=== PATIENT | female | born 1960 | race Caucasian/White ===

== ENCOUNTER 2017-03-27 13:16 | Emergency (ER) | payer SELFPAY ==
[2017-03-27 13:23] VITALS: BP 104/75; PULSE 97; TEMP 97.5
--- NOTE | 2017-03-27 13:37 | EDPHY ---
H & P Stated Complaint: fell broke right arm 3 days ago, seen at [place], left AMA w/ o instruction Source: Patient Exam Limitations: No limitations - Personal History Current Tetanus/Diphtheria Vaccine: Yes Current Tetanus Diphtheria and Acellular Pertussis (TDAP): Yes Tetanus Vaccine Date: < 10 years - Medical/Surgical History Hx Asthma: No Hx Chronic Respiratory Disease: Yes Hx Diabetes: No Hx Cardiac Disease: No Hx Renal Disease: Yes Hx Cirrhosis: No Hx Alcoholism: Yes Hx HIV/AIDS: No Hx Splenectomy or Spleen Trauma: No Other PMH: ETOH, Hep C, COPD, degenerative disk disease, CKD - Social History Smoking Status: Current every day smoker Time Seen by Provider: 03/27/17 13:36 HPI/ROS: HPI: This is a 56-year-old female who presents with Chief Complaint: fell broke right arm 3 days ago, seen at [place], left AMA w/ o instruction Location: Right arm Quality: Injury Duration: 3 days ago Signs and Symptoms: No bleeding, no radiation, no numbness, no weakness, no tingling, no incontinence, + decreased range of motion Timing: Sudden Severity: [id number] Context: Patient reports that she was seen at [facility] approximately 3 days ago after she accidentally fell while intoxicated with alcohol. She admits that she left AMA without physical instructions or medications. She was getting off the bus to come to the hospital today and fell again on her right arm which has been placed into a long arm posterior splint. She is able to wiggle her fingers and retail buyer shoulders without difficulty. She believes that she fractured her forearm and cracked her elbow. Modifying Factors: Splint Comment: ROS: see HPI Constitutional: No fever, no chills, no weight loss Eyes: No blurred vision Respiratory: No shortness of breath, no cough Cardiovascular: No chest pain Gastrointestinal: No nausea, no vomiting no diarrhea Genitourinary: No dysuria Extremities: No myalgias Neurologic: No weakness, no numbness Skin: No rashes Hematologic: No bruising, no bleeding MEDICAL/SURGICAL/SOCIAL HISTORY: Medical history: ETOH, Hep C, COPD, degenerative disk disease, CKD Surgical history: Left leg skin grafts Social history: Unemployed CONSTITUTIONAL: Adult white female who appears older than stated age, awake and alert, no obvious distress HEENT: Atraumatic and normocephalic, PERRL, EOMI. no globe entrapment, no raccoon eyes. no Hawkins signs.Tympanic membranes clear. No tympanic membrane rupture. Nares patent; no septal hematoma. Oropharynx clear, no exudate and moist pink mucosa. No malocclusion. no dental trauma. Airway patent. No lymphadenopathy. NECK: supple, no midline tenderness, flexion 45 degrees, extension 45 degrees, right and left lateral flexion 45 degrees. No meningismus. Cardiovascular: Normal S1/S2, regular rate, regular rhythm, without murmur rub or gallop. PULMONARY/CHEST: Symmetrical and nontender. no crepitus. Clear to auscultation bilaterally. Good air movement. No accessory muscle usage. ABDOMEN: Soft, nondistended, nontender, no ecchymosis, no rebound, no guarding , no peritoneal signs, no masses or organomegaly. No CVAT. PELVIC: no pain with rocking; bilateral hips flexion 125 degrees, extension 30 degrees, with no pain internal rotation and no pain external rotation. BACK: No midline tenderness, no paraspinous spasm, deep tendon reflexes 2/2, no pain with straight leg raise EXTREMITIES: Right arm from above her elbow to her MCP joints is in all long posterior splint. fingers have full range of motion of flexion and extension as well as good capillary refill and light touch sensation is intact. no deformities, no clubbing, no cyanosis or edema. NEUROLOGICAL: no focal neuro deficits. GCS 15. SKIN: Warm and dry, no erythema. no rash. Good capillary refill. (Estella Navarro) Constitutional: Initial Vital Signs Temperature (C) 36.4 C 03/27/17 13:20 Heart Rate 97 03/27/17 13:20 Respiratory Rate 20 03/27/17 13:20 Blood Pressure 104/75 03/27/17 13:20 O2 Sat (%) 95 03/27/17 13:20 O2 Delivery Mode Room Air Allergies/Adverse Reactions: No Known Allergies Allergy (Unverified 03/27/17 13:19) Home Medications: Medication Instructions Recorded NK [No Known Home Meds] 03/27/17 Medical Decision Making - Diagnostics Imaging Results: Imaging Impressions Elbow X-Ray 03/27/17 13:40 Impression: Normal casted alignment. 2. Right Wrist, 3 portable views through a cast History: Fall 3 days ago, splinted in [place] Comparison: None Findings: Cast material obscures fine bony detail. There is a distal radial intra-articular fracture that on the lateral view courses between the mid distal radial articular surface through the dorsal radial metaphysis. There is no significant widening of the distal radial articular surface or dorsal angulation. There is no significant shortening. The ulnar styloid process is short and intact. Impression: Anatomic alignment of the distal radial intra-articular fracture. 3. Right Forearm, 2 views through a cast History: Fall 3 days ago Findings: Cast material obscures fine bony detail. The radial and ulnar shafts are intact and normally aligned. The distal radial fracture described in the wrist x-ray report is visualized. No elbow abnormality is identified on the single view on which it is included. Impression: Negative forearm. Forearm X-Ray 03/27/17 13:40 Impression: Normal casted alignment. 2. Right Wrist, 3 portable views through a cast History: Fall 3 days ago, splinted in [place] Comparison: None Findings: Cast material obscures fine bony detail. There is a distal radial intra-articular fracture that on the lateral view courses between the mid distal radial articular surface through the dorsal radial metaphysis. There is no significant widening of the distal radial articular surface or dorsal angulation. There is no significant shortening. The ulnar styloid process is short and intact. Impression: Anatomic alignment of the distal radial intra-articular fracture. 3. Right Forearm, 2 views through a cast History: Fall 3 days ago Findings: Cast material obscures fine bony detail. The radial and ulnar shafts are intact and normally aligned. The distal radial fracture described in the wrist x-ray report is visualized. No elbow abnormality is identified on the single view on which it is included. Impression: Negative forearm. Wrist X-Ray 03/27/17 13:40 Impression: Normal casted alignment. 2. Right Wrist, 3 portable views through a cast History: Fall 3 days ago, splinted in [place] Comparison: None Findings: Cast material obscures fine bony detail. There is a distal radial intra-articular fracture that on the lateral view courses between the mid distal radial articular surface through the dorsal radial metaphysis. There is no significant widening of the distal radial articular surface or dorsal angulation. There is no significant shortening. The ulnar styloid process is short and intact. Impression: Anatomic alignment of the distal radial intra-articular fracture. 3. Right Forearm, 2 views through a cast History: Fall 3 days ago Findings: Cast material obscures fine bony detail. The radial and ulnar shafts are intact and normally aligned. The distal radial fracture described in the wrist x-ray report is visualized. No elbow abnormality is identified on the single view on which it is included. Impression: Negative forearm. ED Course/Re-evaluation: X-rays and oral medication ordered Given Ultram 50 mg p.o. with adequate relief of pain X-rays reviewed via PACs and show distal radius fracture and possible ulnar styloid fracture. Do not appreciate olecranon fracture. Patient already in an appropriate splint and it is in good condition No signs of neurovascular compromise/tenting of skin/compartment syndrome/ extremities and joints examined above and below area of concern and are neurovascularly intact. Advised RICE therapy, Ortho follow-up (Estella Navarro) The patient was evaluated and managed by the physician itinerant teacher assistant. I have reviewed this chart and I agree with the findings and plan of care as documented , as indicated by my signature. I am the secondary supervising physician. ( Amy Medina) Differential Diagnosis: Differential diagnosis includes but is not limited to fracture, nerve injury, tendon injury, contusion, sprain. (Estella Navarro) - Data Points Medications Given: Discontinued Medications Tramadol HCl (Ultram) 50 mg PO EDNOW ONE Stop: 03/27/17 13:41 Last Admin: 03/27/17 13:49 Dose: 50 mg Departure - Departure Disposition: Home, Routine, Self-Care Clinical Impression: Right wrist fracture Qualifiers: Encounter type: initial encounter Fracture type: closed Qualified Code(s): S62.101A - Fracture of unspecified carpal bone, right wrist, initial encounter for closed fracture Closed fracture of right distal radius Qualifiers: Encounter type: initial encounter Fracture morphology: unspecified fracture morphology Qualified Code(s): S52.501A - Unspecified fracture of the lower end of right radius, initial encounter for closed fracture Instructions: Elbow Fracture (ED), Wrist Fracture in Adults (ED) Additional Instructions: Keep the splint dry and in place until seen by Orthopedics for follow-up. Take ibuprofen 600 mg every 6-8 hours with food as needed for pain and inflammation. Apply ice for 30 minutes at a time; 2-3 times per day for the next 1-2 days. Follow up with Orthopedics in 5-7 days at which time they will evaluate and recommend with you if conservative management versus surgery is indicated. Referrals: Tripp Mendez MD [Medical Doctor] - As per Instructions
[2017-03-27] MEDS ORDERED: traMADol 50 MG TAB PO ONE (13:40)
--- NOTE | 2017-03-27 15:25 | ASMTCMCOM ---
CM Note CM Note Notes: Patient requested a bus pass back to [facility]. Patient reported to ED that she had told a business intelligence analyst that she was someone's caregiver in order to get a free ride to the hospital. This CM went into speak to patient about follow-up appointment and care [facility]. Patient states she has been staying at the [facility] for almost two weeks and been in [place] for about 2 months. Patient originally from [place]. 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 We discussed that she would need to follow up with [facility]. Patient mentioned that she knew [facility] might be at the [facility] tomorrow but "I need a chest x-ray so I thought I'd come here." Patient informed that the ED does not do chest x-rays for TB cards and that she should plan on following up with [facility] tomorrow. Patient was offered additional information on homeless resources and [facility] homeless drop-in hours, but when patient was informed that this CM didn't have any bus passes for her, she became upset and declined additional resources including a map with directions on how to walk to the [facility]. Patient can ambulate very well without any assistance, and it is currently 76 degrees F and mauricio outside. Patient declined any further assistance and ambulated out of the ED. Date Signed: 03/27/2017 03:24 PM Electronically Signed By:Heather Hagan RN
[2017-03-27 15:39] VITALS: RESP 18; O2SAT 98
== END 2017-03-27 15:39 | disposition home or self-care (01) ==
DX: S52.501A Unspecified fracture of the lower end of right radius, initial encounter for closed fracture (principal); J44.9 Chronic obstructive pulmonary disease, unspecified; N18.9 Chronic kidney disease, unspecified; F17.200 Nicotine dependence, unspecified, uncomplicated; W18.39XA Other fall on same level, initial encounter; Y99.8 Other external cause status; Y93.89 Activity, other specified

== ENCOUNTER 2017-04-08 12:05 | Emergency (ER) | payer SELFPAY ==
[2017-04-08] MEDS ORDERED: ONDANSETRON DISINTEGRATING 4 MG TAB PO ONE (12:15)
--- NOTE | 2017-04-08 12:42 | EDPHY ---
H & P Stated Complaint: "im sick i need a drink"--nausea x 3 hours, last etoh this am HPI/ROS: HPI CHIEF COMPLAINT: Nausea, alcohol intoxication, I do not feel well HISTORY OF PRESENT ILLNESS: Patient very pleasant 56-year-old female she is homeless, alcoholic daily alcohol use, last drink was an hour ago. She presents emergency room by private vehicle stating that she does not feel well. She reports to me that she feels like she is going to alcohol draw put her last drink was an hour ago. She complains of nausea but no vomiting. She denies chest pain. Main complaint is overall feeling unwell. Generalized weakness. Past Medical History: Alcoholism, hepatitis-C, chronic kidney disease Past Surgical History: No recent surgery Social History: Homeless, daily alcohol use. Family History: Noncontributory. ROS REVIEW OF SYSTEMS: A comprehensive 10 point review of systems is otherwise negative aside from elements mentioned in the history of present illness. Exam Constitutional appears disheveled, unkept, nontoxic triage nursing summary reviewed, vital signs reviewed, awake/alert. Initial vital signs noted to be tachycardic and somewhat hypotensive in triage. Eyes normal conjunctivae and sclera, EOMI, PERRLA. HENT normal inspection, atraumatic, moist mucus membranes, no epistaxis, neck supple/ no meningismus, no raccoon eyes. Respiratory clear to auscultation bilaterally, normal breath sounds, no respiratory distress, no wheezing. Cardiovascular rate normal, regular rhythm, no murmur, no edema, distal pulses normal. Gastrointestinal soft, non-tender, no rebound, no guarding, normal bowel sounds, no distension, no pulsatile mass. Genitourinary no CVA tenderness. Musculoskeletal no midline vertebral tenderness, full range of motion, no calf swelling, no tenderness of extremities, no meningismus, good pulses, neurovascularly intact. Skin pink, warm, & dry, no rash, skin atraumatic. Neurologic awake, alert and oriented x 3, AAOx3, moves all 4 extremities equally, motor intact, sensory intact, CN II-XII intact, normal cerebellar, normal vision, normal speech. Psychiatric normal mood/affect. Heme/Lymph/Immune no lymphadenopathy. Differential Diagnosis: Includes but is not limited to in a particular order, infection, sepsis, pneumonia, bacteremia, electrolyte disturbance, dehydration, alcohol intoxication, alcohol withdrawal Medical Decision Making: Plan for this patient IV establishment IV fluid bolus , IV Zofran for nausea, check electrolytes, alcohol level, x-ray of her chest, EKG troponin. Re-evaluation: 1553: After evaluation this patient is feeling much better with nausea medicine IV fluids. There is no evidence of sepsis. Alcohol level noted to be high. She is requesting be discharged to go to detox. I will provide Librium for. Vital signs have normalized. She is not hypotensive. She is not tachycardic. She is feeling much better after IV fluids and nausea medicine. Blood work reviewed. Chest x-ray and EKG reviewed. EKG interpretation by me on record in [employer] system. Impression time of EKG 1302, this is sinus rhythm rate of 89. There is no acute ischemic change or prolonged intervals. Unremarkable EKG. Will provide Librium. Patient at this time 3:56 p.m. asking to eat and drink something. She would like soup. Source: Patient - Personal History Current Tetanus/Diphtheria Vaccine: Unsure Current Tetanus Diphtheria and Acellular Pertussis (TDAP): Unsure Tetanus Vaccine Date: < 10 years - Medical/Surgical History Hx Asthma: No Hx Chronic Respiratory Disease: Yes Hx Diabetes: No Hx Cardiac Disease: No Hx Renal Disease: Yes Hx Cirrhosis: No Hx Alcoholism: Yes Hx HIV/AIDS: No Hx Splenectomy or Spleen Trauma: No Other PMH: ETOH, withdrawal seizures, Hep C, COPD, degenerative disk disease, CKD - Social History Smoking Status: Current every day smoker Constitutional: Initial Vital Signs Temperature (C) 37.0 C 04/08/17 12:11 Heart Rate 111 H 04/08/17 12:11 Respiratory Rate 18 04/08/17 12:11 Blood Pressure 89/62 L 04/08/17 12:11 O2 Sat (%) 93 04/08/17 12:11 O2 Delivery Mode Room Air Allergies/Adverse Reactions: No Known Allergies Allergy (Verified 04/08/17 12:10) Home Medications: Medication Instructions Recorded NK [No Known Home Meds] 03/27/17 Medical Decision Making - Diagnostics Imaging Results: Imaging Impressions Chest X-Ray 04/08/17 12:45 Impression: Stable and negative. - Data Points Laboratory Results: Laboratory Results 04/08/17 12:45 04/08/17 12:35 04/08/17 04/08/17 04/08/17 12:45 12:35 12:35 WBC 10.04 10^3/uL H 10^3/uL (3.80-9.50) RBC 4.66 10^6/uL 10^6/uL (4.18-5.33) Hgb 15.6 g/dL g/dL (12.6-16.3) Hct 44.8 % % (38.0-47.0) MCV 96.1 fL fL (81.5-99.8) MCH 33.5 pg pg (27.9-34.1) MCHC 34.8 g/dL g/dL (32.4-36.7) RDW 13.4 % % (11.5-15.2) Plt Count 342 10^3/uL 10^3/uL (150-400) MPV 10.5 fL fL (8.7-11.7) Neut % (Auto) 55.8 % % (39.3-74.2) Lymph % (Auto) 34.7 % % (15.0-45.0) [place] % (Auto) 6.0 % % (4.5-13.0) Eos % (Auto) 1.9 % % (0.6-7.6) Baso % (Auto) 1.2 % % (0.3-1.7) Nucleat RBC Rel Count 0.0 % % (0.0-0.2) Absolute Neuts (auto) 5.61 10^3/uL 10^3/uL (1.70-6.50) Absolute Lymphs (auto) 3.48 10^3/uL H 10^3/uL (1.00-3.00) Absolute Monos (auto) 0.60 10^3/uL 10^3/uL (0.30-0.80) Absolute Eos (auto) 0.19 10^3/uL 10^3/uL (0.03-0.40) Absolute Basos (auto) 0.12 10^3/uL H 10^3/uL (0.02-0.10) Absolute Nucleated RBC 0.00 10^3/uL 10^3/uL (0-0.01) Immature Gran % 0.4 % % (0.0-1.1) Immature Gran # 0.04 10^3/uL 10^3/uL (0.00-0.10) PT INR APTT VBG Lactic Acid Sodium 143 mEq/L mEq/L (134-144) Potassium 3.5 mEq/L mEq/L (3.5-5.2) Chloride 104 mEq/L mEq/L (97-110) Carbon Dioxide 22 mEq/l mEq/l (22-31) Anion Gap 17 mEq/L H mEq/L (8-16) BUN 15 mg/dL mg/dL (7-23) Creatinine 0.6 mg/dL mg/dL (0.6-1.0) Estimated GFR > 60 Glucose 91 mg/dL mg/dL (70-100) Calcium 9.7 mg/dL mg/dL (8.5-10.4) Total Bilirubin 0.3 mg/dL mg/dL (0.1-1.4) Conjugated Bilirubin 0.2 mg/dL mg/dL (0.0-0.5) Unconjugated Bilirubin 0.1 mg/dL mg/dL (0.0-1.1) AST 67 IU/L H IU/L (14-46) ALT 69 IU/L H IU/L (9-52) Alkaline Phosphatase 118 IU/L IU/L (38-126) Troponin I < 0.012 ng/mL ng/mL (0.000-0.034) Total Protein 7.8 g/dL g/dL (6.3-8.2) Albumin 4.4 g/dL g/dL (3.5-5.0) Lipase 57 IU/L IU/L (23-300) Urine Color YELLOW Urine Appearance CLEAR Urine pH 6.0 (5.0-7.5) Ur Specific [employer] 1.008 (1.002-1.030) Urine Protein NEGATIVE (NEGATIVE) Urine Ketones NEGATIVE (NEGATIVE) Urine Blood NEGATIVE (NEGATIVE) Urine Nitrate NEGATIVE (NEGATIVE) Urine Bilirubin NEGATIVE (NEGATIVE) Urine Urobilinogen NEGATIVE EU EU (0.2-1.0) Ur Leukocyte Esterase NEGATIVE (NEGATIVE) Urine Glucose NEGATIVE (NEGATIVE) Urine Opiates Screen NEGATIVE (NEGATIVE) Urine Barbiturates NEGATIVE (NEGATIVE) Ur Phencyclidine Scrn NEGATIVE (NEGATIVE) Ur Amphetamine Screen NEGATIVE (NEGATIVE) U Benzodiazepines Scrn NEGATIVE (NEGATIVE) Urine Cocaine Screen NEGATIVE (NEGATIVE) U Marijuana (THC) Screen NON-NEGATIVE H (NEGATIVE) Ethyl Alcohol 210 mg/dL H mg/dL (0-10) 04/08/17 04/08/17 12:35 12:35 WBC RBC Hgb Hct MCV MCH MCHC RDW Plt Count MPV Neut % (Auto) Lymph % (Auto) [place] % (Auto) Eos % (Auto) Baso % (Auto) Nucleat RBC Rel Count Absolute Neuts (auto) Absolute Lymphs (auto) Absolute Monos (auto) Absolute Eos (auto) Absolute Basos (auto) Absolute Nucleated RBC Immature Gran % Immature Gran # PT 12.1 SEC SEC (12.0-15.0) INR 0.91 (0.83-1.16) APTT 27.5 SEC SEC (23.0-38.0) VBG Lactic Acid 2.6 mmol/L H mmol/L (0.7-2.1) Sodium Potassium Chloride Carbon Dioxide Anion Gap BUN Creatinine Estimated GFR Glucose Calcium Total Bilirubin Conjugated Bilirubin Unconjugated Bilirubin AST ALT Alkaline Phosphatase Troponin I Total Protein Albumin Lipase Urine Color Urine Appearance Urine pH Ur Specific [employer] Urine Protein Urine Ketones Urine Blood Urine Nitrate Urine Bilirubin Urine Urobilinogen Ur Leukocyte Esterase Urine Glucose Urine Opiates Screen Urine Barbiturates Ur Phencyclidine Scrn Ur Amphetamine Screen U Benzodiazepines Scrn Urine Cocaine Screen U Marijuana (THC) Screen Ethyl Alcohol Medications Given: Discontinued Medications Sodium Chloride (Ns) 1,000 mls @ 0 mls/hr IV EDNOW ONE; Wide Open PRN Reason: Protocol Stop: 04/08/17 12:46 Last Admin: 04/08/17 13:44 Dose: 1,000 mls Sodium Chloride (Ns) 1,000 mls @ 0 mls/hr IV ONCE ONE PRN Reason: Wide Open Stop: 04/08/17 13:43 Last Admin: 04/08/17 13:48 Dose: 1,000 mls Ondansetron HCl (Zofran Odt) 4 mg PO EDNOW ONE Stop: 04/08/17 12:16 Last Admin: 04/08/17 12:25 Dose: Not Given Ondansetron HCl (Zofran) 4 mg IVP EDNOW ONE Stop: 04/08/17 12:46 Last Admin: 04/08/17 13:44 Dose: 4 mg Departure - Departure Disposition: Home, Routine, Self-Care Clinical Impression: Alcohol withdrawal Qualifiers: Complication of substance-induced condition: uncomplicated Qualified Code(s): F10.230 - Alcohol dependence with withdrawal, uncomplicated Condition: Good Instructions: Alcohol Withdrawal (ED) Additional Instructions: 1. Return emergency room if develops worsening symptoms questions or concerns includes vomiting or feeling ill. Referrals: NONE *PRIMARY CARE P,. [Primary Care Provider] - As per Instructions
[2017-04-08] MEDS ORDERED: NS 1,000 ML IV ONE ×2 (12:45→13:42)
[2017-04-08] MEDS ORDERED: ONDANSETRON 4 MG/2 ML VIAL IVP ONE (12:45)
[2017-04-08 12:55] LABS: PLATELET COUNT 342 10^3/uL (150-400)
--- NOTE | 2017-04-08 13:04 | CPEKG ---
Heart Rate: 89 RR Interval: 674 P-R Interval: 152 QRSD Interval: 86 QT Interval: 384 QTC Interval: 468 P Leming: 76 QRS Leming: 58 T Wave Leming: 77 EKG Severity - NORMAL ECG - EKG Impression: SINUS RHYTHM Electronically Signed By: Giovanni Ventura 08-Apr-2017 18:34:25
[2017-04-08 13:06] LABS: INR 0.91 (0.83-1.16); PROTIME(PATIENT) 12.1 SEC (12.0-15.0)
[2017-04-08 15:03] VITALS: TEMP 97.7
[2017-04-08] MEDS ORDERED: chlordiazePOXIDE 25 MG CAP PO ONE (15:56)
[2017-04-08] MEDS ORDERED: CHLORDIAZEPOXIDE 25MG PREPK#6 BTL TAKEHOME ONE (15:56)
[2017-04-08 16:22] VITALS: BP 108/68; PULSE 90; RESP 16; O2SAT 93
--- NOTE | 2017-04-08 16:52 | ASDISCHSUM ---
Discharge Information Plan Status:Homeless/[facility] Medically Cleared to Leave: Discharge Date:04/08/2017 04:24 PM CM D/C Disposition:Other (Not listed) ADT D/C Disposition:Home, Routine, Self-Care Projected Discharge Date:04/08/2017 04:24 PM Transportation at D/C:Cab Voucher Discharge Delay Reason: Follow-Up Date:04/08/2017 04:24 PM Discharge Slot: Final Diagnosis: Placement Information Patient Contact Information Contact Name:JUSTICE Relationship: Address: Home Phone: Work Phone: City: Alternate Phone: State/[place] Code: Email: Financial Information Financial Class:Self-Pay Primary Plan Desc:SELF PAY Primary Plan Number: Secondary Plan Desc: Secondary Plan Number: Assessment Information LACE LACE Acuity / Level of Care Answers: Was the patient admitted to hospital via the emergency department? Yes: Emergency dept visits in Answers: 2 last 6 months Score: 5 Date Signed: 04/08/2017 04:49 PM Electronically Signed By:Heather Hagan RN Intervention Information
--- NOTE | 2017-04-08 16:52 | ASDISCHSUM ---
Discharge Information Plan Status:Homeless/[facility] Medically Cleared to Leave: Discharge Date:04/08/2017 04:24 PM CM D/C Disposition:Other (Not listed) ADT D/C Disposition:Home, Routine, Self-Care Projected Discharge Date:04/08/2017 04:24 PM Transportation at D/C:Cab Voucher Discharge Delay Reason: Follow-Up Date:04/08/2017 04:24 PM Discharge Slot: Final Diagnosis: Placement Information Patient Contact Information Contact Name:JUSTICE Relationship: Address: Home Phone: Work Phone: City: Alternate Phone: State/[employer] Code: Email: Financial Information Financial Class:Self-Pay Primary Plan Desc:SELF PAY Primary Plan Number: Secondary Plan Desc: Secondary Plan Number: Assessment Information LACE LACE Acuity / Level of Care Answers: Was the patient admitted to hospital via the emergency department? Yes: Emergency dept visits in Answers: 2 last 6 months Score: 5 Date Signed: 04/08/2017 04:49 PM Electronically Signed By:Heather Hagan RN Intervention Information
--- NOTE | 2017-04-08 16:52 | ASDISCHSUM ---
Discharge Information Plan Status:Homeless/Correction Medically Cleared to Leave: Discharge Date:04/08/2017 04:24 PM CM D/C Disposition:Other (Not listed) ADT D/C Disposition:Home, Routine, Self-Care Projected Discharge Date:04/08/2017 04:24 PM Transportation at D/C:Cab Voucher Discharge Delay Reason: Follow-Up Date:04/08/2017 04:24 PM Discharge Slot: Final Diagnosis: Placement Information Patient Contact Information Contact Name:JUSTICE Relationship: Address: Home Phone: Work Phone: City: Alternate Phone: State/[place] Code: Email: Financial Information Financial Class:Self-Pay Primary Plan Desc:SELF PAY Primary Plan Number: Secondary Plan Desc: Secondary Plan Number: Assessment Information LACE LACE Acuity / Level of Care Answers: Was the patient admitted to hospital via the emergency department? Yes: Emergency dept visits in Answers: 2 last 6 months Score: 5 Date Signed: 04/08/2017 04:49 PM Electronically Signed By:Heather Hagan RN Intervention Information
== END 2017-04-08 16:24 | disposition home or self-care (01) ==
DX: F10.230 Alcohol dependence with withdrawal, uncomplicated (principal); J44.9 Chronic obstructive pulmonary disease, unspecified; F17.200 Nicotine dependence, unspecified, uncomplicated; E86.9 Volume depletion, unspecified
CPT/HCPCS: 80305; 96374; G0480; J2405

== ENCOUNTER 2017-09-06 03:08 | Emergency (ER) | payer MEDICAID ==
[2017-09-06 03:15] VITALS: TEMP 97.3
--- NOTE | 2017-09-06 03:53 | EDPHY ---
H & P Stated Complaint: SENT FROM [facility] FOR LIBRIUM,LAST DRINK EARLIER TODAY Time Seen by Provider: 09/06/17 03:52 HPI/ROS: HPI The patient [facility] the [facility] with symptoms of alcohol withdrawal. Her last drink was earlier today and she is feeling anxious , nauseated and tremulous. She has been feeling this way for the last several hours, it is getting progressively worse. She does have a history of alcohol withdrawal and seizures. She denies any other drug use.. REVIEW OF SYSTEMS Constitutional: No fever, no chills. Eyes: No discharge. ENT: No sore throat. Cardiovascular: No chest pain, no palpitations. Respiratory: No cough, no shortness of breath. Gastrointestinal: No abdominal pain, no vomiting. Genitourinary: No hematuria. Musculoskeletal: No back pain. Skin: No rashes. Neurological: No headache. PMHx: Chronic alcohol abuse, history of polysubstance abuse, history of COPD Soc Hx: Currently at the [facility] PHYSICAL General Appearance: Alert, slightly anxious Eyes: Pupils equal and round no pallor or injection ENT, Mouth: Mucous membranes moist Respiratory: There are no retractions, lungs are clear to auscultation Cardiovascular: Mildly tachycardic Gastrointestinal: Abdomen is soft and non-tender, no masses, bowel sounds normal Neurological: A&O, moves all extremities, mild hand tremor Skin: Warm and dry, no rashes Musculoskeletal: Neck is supple non tender Extremities: symmetrical, full range of motion Psychiatric: Patient is oriented X 3, there is no agitation Source: Patient Exam Limitations: No limitations - Personal History Current Tetanus/Diphtheria Vaccine: Yes Tetanus Vaccine Date: < 10 years - Medical/Surgical History Hx Asthma: No Hx Chronic Respiratory Disease: Yes Hx Diabetes: No Hx Cardiac Disease: No Hx Renal Disease: Yes Hx Cirrhosis: No Hx Alcoholism: Yes Hx HIV/AIDS: No Hx Splenectomy or Spleen Trauma: No Other PMH: ETOH, withdrawal seizures, Hep C, COPD, degenerative disk disease, KIDNEY FAILURE - Social History Smoking Status: Current every day smoker Constitutional: Initial Vital Signs Temperature (C) 36.3 C 09/06/17 03:12 Heart Rate 103 H 09/06/17 03:12 Respiratory Rate 22 H 09/06/17 03:12 Blood Pressure 93/70 L 09/06/17 03:12 O2 Sat (%) 93 09/06/17 03:12 O2 Delivery Mode Room Air O2 (L/minute) 2 Allergies/Adverse Reactions: No Known Allergies Allergy (Verified 09/06/17 03:11) Home Medications: Medication Instructions Recorded NK [No Known Home Meds] 03/27/17 Medical Decision Making ED Course/Re-evaluation: This is a 57-year-old female with longstanding history of alcohol abuse who presents from the [facility] with symptoms of alcohol withdrawal , last drink earlier today. On arrival, she is mildly tachycardic, blood pressure is slightly low. She does have a mild hand tremor. She was given a L of IV fluid and a dose of Ativan for her symptoms. Blood pressure improved after receiving IV fluids. No laboratories were evaluated. She felt well and will be discharged to the [facility]. Differential diagnosis includes alcohol withdrawal, benzodiazepine withdrawal, polysubstance abuse, anxiety attack. - Data Points Medications Given: Discontinued Medications Chlordiazepoxide (Librium 25 Mg Prepack#6) 1 btl TAKEHOME EDNOW ONE Stop: 09/06/17 05:35 Last Admin: 09/06/17 05:45 Dose: 1 btl Lorazepam (Ativan Injection) 1 mg IVP EDNOW ONE Stop: 09/06/17 04:11 Last Admin: 09/06/17 04:13 Dose: 1 mg Departure - Departure Disposition: Home, Routine, Self-Care Clinical Impression: Alcohol withdrawal Qualifiers: Complication of substance-induced condition: uncomplicated Qualified Code(s): F10.230 - Alcohol dependence with withdrawal, uncomplicated Condition: Good Instructions: Alcohol Withdrawal (ED) Referrals: [facility] [Outside] - As per Instructions
[2017-09-06] MEDS ORDERED: LORazepam 2 MG/ML INJ IVP ONE (04:10)
[2017-09-06] MEDS ORDERED: LORazepam 2 MG/ML INJ ONE (04:11)
[2017-09-06 04:16] VITALS: RESP 16
[2017-09-06] MEDS ORDERED: CHLORDIAZEPOXIDE 25MG PREPK#6 BTL TAKEHOME ONE (05:34)
[2017-09-06 06:15] VITALS: BP 113/73; PULSE 82; O2SAT 98
== END 2017-09-06 06:36 | disposition home or self-care (01) ==
DX: F10.230 Alcohol dependence with withdrawal, uncomplicated (principal); J44.9 Chronic obstructive pulmonary disease, unspecified; F17.200 Nicotine dependence, unspecified, uncomplicated
CPT/HCPCS: 96374; J2060

== ENCOUNTER 2017-09-19 20:49 | Emergency (ER) | payer MEDICAID ==
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
[2017-09-19 22:23] VITALS: BP 134/77
== END 2017-09-19 22:23 | disposition home or self-care (01) ==
LOC: EDBD → EDUNIT#
DX: S62.511A Displaced fracture of proximal phalanx of right thumb, initial encounter for closed fracture (principal); F10.920 Alcohol use, unspecified with intoxication, uncomplicated; F17.200 Nicotine dependence, unspecified, uncomplicated; J44.9 Chronic obstructive pulmonary disease, unspecified; X58.XXXA Exposure to other specified factors, initial encounter

== ENCOUNTER 2017-10-31 11:52 | Emergency (ER) | payer MEDICAID ==
[2017-10-31] MEDS ORDERED: chlordiazePOXIDE 25 MG CAP PO ONE (12:44)
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
[2017-10-31 13:40] VITALS: BP 118/77
--- NOTE | 2017-10-31 18:37 | ASDISCHSUM ---
Discharge Information Plan Status:Homeless/Jail Medically Cleared to Leave: Discharge Date:10/31/2017 02:42 PM D/C Disposition:Streets (Homeless) ADT D/C Disposition:Home, Routine, Self-Care Projected Discharge Date:10/31/2017 02:42 PM Transportation at D/C:Cab Voucher Discharge Delay Reason: Follow-Up Date:10/31/2017 02:42 PM Discharge Slot: Final Diagnosis: Placement Information Patient Contact Information Contact Name:SYEDPrince Relationship: Address: Home Phone: Work Phone: City: Alternate Phone: State/Zip Code: Email: Financial Information Financial Class:Medicaid Primary Plan Desc:[employer] Primary Plan Number:[id number] Secondary Plan Desc: Secondary Plan Number: Assessment Information [facility] Progress Note CM Note CM Note Notes: Pt presented to the ED from [facility] detox after her UDS tested positive for benzodiazepines; due to this, detox will not accept pt back. Pt medically cleared/stabilized in the ED and ready for discharge. Pt states her clothes are still at detox; this CM provided a cab voucher back to Detox to crab picker her belongings. Pt aware detox will not accept her back. We discussed patient getting her clothes and then going to [facility] and discuss outpatient ETOH abuse treatment options. Pt is homeless and states she has been "kicked out" of both the [facility] and the [facility] program. However, pt states she never completed the Coordinate Entry process. This CM offered info on CE and strongly encouraged her to complete the CE but patient said "no, im headed home soon anyway, I'm not going to bother with that." Pt states she is from [place] and plans to return there around 11/09/17. This CM tried to tell pt that completing CE could get her referred to [facility] and they could actually help get her home to [place]. Pt kept interrupting and stating "there's no point." Pt also stated "I'll just got commit a disturbance and get placed in snf." This CM tried to discuss that pt doesn't have to resort to that when there are still potential long term options but pt did not want to partake in the conversation. Pt requested a regional bus pass to go to a [facility] long term. Pt provided regional bus pass and informed this is a one-time courtesy, especially since we are also providing a cab ride back to detox. Pt aware. Pt also strongly encourage to follow-up with [facility]. CM available for further assistance if needed. Date Signed: 10/31/2017 06:35 PM Electronically Signed By:Heather Hagan RN Intervention Information Intervention Type:Bus Pass Date of Service:10/31/2017 06:35 PM Patient Type:Emergency Room Staff Member:GRICELDA Hagan [place] Hours:0.25 Discipline:[employer] Patrol[employer] Severity: Comment:regional bus pass; pt requested in ord er to get to a [facility] Intervention Type:Cab Vouchers Date of Service:10/31/2017 06:35 PM Patient Type:Emergency Room Staff Member:GRICELDA Hagan [place] Hours:0.25 Discipline:Fore[employer] Patrolman Severity: Comment:[facility] cab voucher Intervention Type:Education Family/Patient Date of Service:10/31/2017 06:35 PM Patient Type:Emergency Room Staff Member:GRICELDA Hagan [place] Hours:0.25 Discipline:Fore[employer] Patrolman Severity: Comment:
== END 2017-10-31 14:42 | disposition home or self-care (01) ==
DX: F10.230 Alcohol dependence with withdrawal, uncomplicated (principal); T42.4X5A Adverse effect of benzodiazepines, initial encounter; J44.9 Chronic obstructive pulmonary disease, unspecified; F17.200 Nicotine dependence, unspecified, uncomplicated
CPT/HCPCS: 80305

== ENCOUNTER 2017-11-24 11:28 | Emergency (ER) | payer MEDICAID ==
--- NOTE | 2017-11-24 12:14 | EDPHY ---
H & P Stated Complaint: from [facility] clear "need librium" Time Seen by Provider: 11/24/17 12:13 HPI/ROS: HPI: This is a 57-year-old female who presents with Chief Complaint: from [facility] clear "need librium" Location: body Quality: Medical clearance Duration: Today Signs and Symptoms: Positive nausea, positive anxiety, no vomiting, no hematemesis, no blood in stool, no abdominal pain, no seizure activity Timing: Acute on chronic Severity: Moderate Context: Patient reports that she has a history of alcohol abuse and alcohol withdrawal seizures presents [facility] the [facility] with complaints of nausea, anxiety, tremors and fatigue. Patient reports that she normally drinks a qt of whiskey daily last drink was yesterday evening. She denies any recent seizure activity. She is asking for something to drinking crackers to eat. She is willing to go back to the [facility] and they are willing to accept her with Librium. Modifying Factors: None Comment: ROS: see HPI Constitutional: No fever, no chills, no weight loss Eyes: No blurred vision Respiratory: No shortness of breath, no cough Cardiovascular: No chest pain Gastrointestinal: + nausea, no vomiting, no diarrhea Genitourinary: No dysuria Extremities: No myalgias Neurologic: No weakness, no numbness Skin: No rashes Hematologic: No bruising, no bleeding MEDICAL/SURGICAL/SOCIAL HISTORY: Medical history: ETOH, withdrawal seizures, Hep C, COPD, degenerative disk disease, KIDNEY FAILURE Surgical history: Denies Social history: Unemployed. Family history noncontributory. CONSTITUTIONAL: Untidy polite and cooperative middle-aged white female, awake and alert, no obvious distress HEENT: Atraumatic and normocephalic, PERRL, EOMI. Nares patent; no rhinorrhea; no nasal mucosal edema. Tympanic membranes clear. Oropharynx clear, no exudate and moist pink mucosa. Airway patent. No lymphadenopathy. No meningismus. Cardiovascular: Normal S1/S2, regular rate, regular rhythm, without murmur rub or gallop. PULMONARY/CHEST: Symmetrical and nontender. Clear to auscultation bilaterally. Good air movement. No accessory muscle usage. ABDOMEN: Soft, nondistended, nontender, no rebound, no guarding, no peritoneal signs, no masses or organomegaly. No CVAT. EXTREMITIES: 2/2 pulses, strength 5/5, no deformities, no clubbing, no cyanosis or edema. NEUROLOGICAL: no focal neuro deficits. GCS 15. Mild hand tremors noted. SKIN: Warm and dry, no erythema. no rash. Good capillary refill. Source: Patient, Old records Exam Limitations: No limitations - Personal History Current Tetanus/Diphtheria Vaccine: No Current Tetanus Diphtheria and Acellular Pertussis (TDAP): No Tetanus Vaccine Date: < 10 years - Medical/Surgical History Hx Asthma: No Hx Chronic Respiratory Disease: Yes Hx Diabetes: No Hx Cardiac Disease: No Hx Renal Disease: Yes Hx Cirrhosis: No Hx Alcoholism: Yes Hx HIV/AIDS: No Hx Splenectomy or Spleen Trauma: No Other PMH: ETOH, withdrawal seizures, Hep C, COPD, degenerative disk disease, KIDNEY FAILURE - Social History Smoking Status: Current every day smoker Constitutional: Initial Vital Signs Temperature (C) 37.0 C 11/24/17 11:46 Heart Rate 78 11/24/17 11:46 Respiratory Rate 18 11/24/17 11:46 Blood Pressure 134/97 H 11/24/17 11:46 O2 Sat (%) 98 11/24/17 11:46 O2 Delivery Mode Room Air Allergies/Adverse Reactions: No Known Allergies Allergy (Verified 10/31/17 11:55) Home Medications: Medication Instructions Recorded NK [No Known Home Meds] 03/27/17 Medical Decision Making ED Course/Re-evaluation: Vital signs reviewed and stable. Abdomen soft and nontender. Doubt surgical process. CIWA score upon arrival equals 6 Patient given p. O. Zofran 4 mg, p.o. Ativan 1 mg, and p.o. Librium 50 mg Repeat CIWA score equals 3 Patient will be discharged to the [facility] as she is ambulatory without deficits, no ataxia, with improvement in her symptoms with medications administered. Librium prepack provided. No signs of seizure activity, delirium. This patient was seen under the supervision of my secondary supervising physician. I evaluated care for this patient independently. Discussed this patient with Dr. Han who did not see the patient. Differential Diagnosis: Differential diagnosis includes but is not limited to alcoholism, binge drinking , alcohol withdrawal, alcohol withdrawal seizures, delirium tremens. - Data Points Medications Given: Discontinued Medications Chlordiazepoxide (Librium 25 Mg Prepack#6) 1 btl TAKEHOME EDNOW ONE Stop: 11/24/17 12:27 Last Admin: 11/24/17 12:43 Dose: 1 btl Chlordiazepoxide HCl (Librium) 50 mg PO EDNOW ONE Stop: 11/24/17 12:22 Last Admin: 11/24/17 12:42 Dose: 50 mg Lorazepam (Ativan) 1 mg PO EDNOW ONE Stop: 11/24/17 12:22 Last Admin: 11/24/17 12:42 Dose: 1 mg Ondansetron HCl (Zofran Odt) 4 mg PO EDNOW ONE Stop: 11/24/17 12:22 Last Admin: 11/24/17 12:32 Dose: 4 mg Departure - Departure Disposition: Home, Routine, Self-Care Clinical Impression: Alcohol abuse Alcohol withdrawal Qualifiers: Complication of substance-induced condition: uncomplicated Qualified Code(s): F10.230 - Alcohol dependence with withdrawal, uncomplicated Condition: Fair Instructions: Alcohol Withdrawal (ED) Additional Instructions: Consume a minimum of 8-10 glasses of water or electrolyte fluid replacement drinks that include Gatorade, Powerade, Pedialyte. Eat a bland diet for the next 48 hours and then slowly advance as tolerated. Take Librium as needed for alcohol withdrawal symptoms. Continue to refrain from drinking alcohol. Referrals: [facility] [Outside] - As per Instructions
[2017-11-24] MEDS ORDERED: ONDANSETRON DISINTEGRATING 4 MG TAB PO ONE (12:21)
[2017-11-24] MEDS ORDERED: chlordiazePOXIDE 25 MG CAP PO ONE (12:21)
[2017-11-24] MEDS ORDERED: LORazepam 1 MG TAB PO ONE (12:21)
[2017-11-24] MEDS ORDERED: CHLORDIAZEPOXIDE 25MG PREPK#6 BTL TAKEHOME ONE (12:26)
[2017-11-24 13:31] VITALS: BP 137/82
--- NOTE | 2017-11-24 14:44 | ASMTCMCOM ---
CM Note CM Note Notes: Pt presented to the ED from [facility] where she has been staying for ETOH withdrawal. [facility] staff requesting additional symptom mgmt and Librium if pt is to return to detox. Pt provided medication while in the ED and another pre-pack of Librium. Pt is agreeable to returning to detox; cab called for transport; voucher used. Refer to CM assessment report on 11/05/17 for additional background. Spoke w/pt and she states she has not been in [place] and has been sleeping outside in [place]. Pt is still not interested in the local snf options (pt reports she has been kicked out of [facility] and [facility]). When asked if patient would like information re:local homeless resources, pt declined. Pt did state she has been seen at [facility]. This CM to followup with [facility] on Sunday to see if patient has followed up w/PC and if there are any additional ways we can assist with coordinating outpatient followup. Date Signed: 11/24/2017 02:43 PM Electronically Signed By:Heather Hagan RN
--- NOTE | 2017-11-24 15:14 | ASDISCHSUM ---
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 staff requesting additional symptom mgmt and Librium if pt is to return to detox. Pt provided medication while in the ED and another pre-pack of Librium. Pt is agreeable to returning to detox; cab called for transport; voucher used. Refer to CM assessment report on 11/05/17 for additional background. Spoke w/pt and she states she has not been in [place] and has been sleeping outside in [place]. Pt is still not interested in the local halfway options (pt reports she has been kicked out of [facility] and [facility]). When asked if patient would like information re:local homeless resources, pt declined. Pt did state she has been seen at [facility]. This CM to followup with [facility] on Sunday to see if patient has followed up w/PC and if there are any additional ways we can assist with coordinating outpatient followup. 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
== END 2017-11-24 13:30 | disposition home or self-care (01) ==
DX: F10.230 Alcohol dependence with withdrawal, uncomplicated (principal); F17.200 Nicotine dependence, unspecified, uncomplicated; J44.9 Chronic obstructive pulmonary disease, unspecified